=== PATIENT | female | born 2000 | race Caucasian/White ===

== ENCOUNTER 2021-03-20 17:52 | Observation (INO) ==
[2021-03-20 18:17] LABS: Bacteria,Urine Few per hpf (None-Few); Bilirubin,Urine Negative (Negative); Blood,Urine Negative (Negative); Calcium Oxalate Crystals,Urine Present per hpf; Clarity,Urine Turbid (Clear); Color,Urine Yellow (Yellow); Glucose,Urine (UA) Normal (Normal); Hyaline Casts,Urine Few per lpf (None Seen); Ketones,Urine Negative (Negative); Leukocyte Esterase,Urine Moderate (Negative); Mucus,Urine Few per lpf (None-Few); Nitrite,Urine Negative (Negative); PH,Urine 6.5 pH Units (5.0-8.0); Protein,Urine 50 mg/dL (Neg-Trace); Specific Gravity,Urine > 1.030 (1.010-1.025); Squamous Epithelial Cell,Urine Many per hpf (None-Few); Urobilinogen,Urine Normal (Normal)
[2021-03-20 18:25] LABS: Basophils % 0.4 %; Eosinophils # 0.1 K/mcL (0.0-0.6); Eosinophils % 0.6 %; Hematocrit 40.8 % (35.3-44.9); Immature Granulocytes % 0.8 % (0-4); Lymphocytes # 1.9 K/mcL (0.6-4.6); Lymphocytes % 17.1 %; Mean Corpuscular HGB Conc 31.9 g/dL (31.6-35.5); Mean Corpuscular Hemoglobin 29.9 pg (28.0-33.3); Mean Corpuscular Volume 93.8 fL (83.0-100.0); Mean Platelet Volume 11.2 fL (9.4-12.4); Monocytes # 1.1 K/mcL (0.0-1.3); Monocytes % 9.6 %; Neutrophils # 8.1 K/mcL (1.6-8.9); Platelet Count 208 K/mcL (140-400); Red Blood Count 4.35 M/mcL (3.82-4.97); Red Cell Distribution Width 13.7 % (11.5-14.5); Segmented Neutrophils % 71.5 %; White Blood Count 11.3 K/mcL (4.3-11.1)
[2021-03-20 18:33] LABS: Protein/Creatinine Ratio,Urine 0.25 mg/mg (0.00-0.20)
== END 2021-03-20 19:14 | disposition home or self-care (01) ==
LOC: 1NENULAB
PROVIDERS: ADMIT Advanced Practice Midwife; ATTEND Advanced Practice Midwife

== ENCOUNTER 2021-03-24 21:48 | Inpatient (IN) ==
[2021-03-24] MEDS ORDERED: Naloxone 0.4 MG/ML INJ IVP PRN (21:57)
[2021-03-24] MEDS ORDERED: Azithromycin 500 MG in 0.9 % Sodium Chloride 250 ML IVPB PRN (21:57)
[2021-03-24] MEDS ORDERED: Metoclopramide 10 MG/2 ML VIAL IVP PRN (21:57)
[2021-03-24] MEDS ORDERED: Ondansetron 4 MG/2 ML VIAL IVP PRN (21:57)
[2021-03-24] MEDS ORDERED: Famotidine 20 MG/2 ML VIAL IVP PRN (21:57)
[2021-03-24] MEDS ORDERED: Lidocaine 1% 20 ML MDV INFILT PRN (21:57)
[2021-03-24] MEDS ORDERED: miSOPROStoL 25 MCG TABLET VG PRN (21:57)
[2021-03-24] MEDS ORDERED: Oxytocin 20 units/ LR 1000 mL 20 UNIT/1,000 ML BAG IVC SCH (22:00)
[2021-03-24 23:19] LABS: Basophils # 0.1 K/mcL (0.0-0.2); Basophils % 0.4 %; Eosinophils # 0.1 K/mcL (0.0-0.6); Eosinophils % 0.7 %; Hematocrit 38.3 % (35.3-44.9); Hemoglobin 12.4 g/dL (11.5-15.4); Immature Granulocytes % 1.2 % (0-4); Lymphocytes # 2.6 K/mcL (0.6-4.6); Mean Corpuscular HGB Conc 32.4 g/dL (31.6-35.5); Mean Corpuscular Volume 92.5 fL (83.0-100.0); Mean Platelet Volume 10.5 fL (9.4-12.4); Monocytes # 1.1 K/mcL (0.0-1.3); Monocytes % 7.9 %; Neutrophils # 9.6 K/mcL (1.6-8.9); Platelet Count 230 K/mcL (140-400); Red Blood Count 4.14 M/mcL (3.82-4.97); Red Cell Distribution Width 13.8 % (11.5-14.5); Segmented Neutrophils % 70.8 %; White Blood Count 13.6 K/mcL (4.3-11.1)
[2021-03-24 23:20] LABS: Amphetamine Screen,Urine Negative ng/mL (Cutoff=1000); Barbiturate Screen,Urine Negative ng/mL (Cutoff=200); Benzodiazepines Screen,Urine Negative ng/mL (Cutoff=200); Cannabinoid Screen,Urine Negative ng/mL (Cutoff = 50); Cocaine Screen,Urine Negative ng/mL (Cutoff= 300); Opiate Screen,Urine Negative ng/mL (Cutoff=300); Phencyclidine Screen,Urine Negative ng/mL (Cutoff=25)
[2021-03-24 23:48] LABS: Influenza A PCR Negative (Negative); Influenza B PCR Negative (Negative); Resp. Syncytial Virus PCR Negative (Negative)
[2021-03-24 23:56] LABS: SARS-CoV-2 by PCR (In House) Negative (Negative)
[2021-03-24 23:59] LABS: Alanine Aminotransferase 9 Units/L (7-52); Aspartate Amino Transferase 14 Units/L (13-39); BUN/Creatinine Ratio 21 (6-26); Blood Urea Nitrogen 13 mg/dL (6-20); Lactate Dehydrogenase 212 Units/L (140-271); Uric Acid 4.7 mg/dL (2.3-7.6); eGFR For African Americans > 60 (> 60); eGFR For Non-African Americans > 60 (> 60)
[2021-03-25] MEDS ORDERED: EPHEDrine 50 MG/ML VIAL IVP PRN (04:28)
[2021-03-25] MEDS ORDERED: Epidural Premix (fent/bupiv) 110 ML EP SCH (04:30)
[2021-03-25] MEDS ORDERED: miSOPROStoL 25 MCG TABLET PO PRN (05:11)
[2021-03-25 08:16] LABS: Creatinine,Urine 65 mg/dL; Protein/Creatinine Ratio,Urine 0.34 mg/mg (0.00-0.20)
[2021-03-25] MEDS: *HR* Nalbuphine 10 MG/ML AMPUL IV PRN ×2 (09:37→15:17)
[2021-03-25] MEDS: Ringers Solution, Lactated 1,000 ML IVC SCH ×2 (10:45→16:39)
[2021-03-25] MEDS ORDERED: Ropivacaine/PF 0.2% 20 ML VIAL EP ONE (14:58)
[2021-03-25] MEDS ORDERED: *HR* FentaNYL (PF) 100 MCG/2 ML VIAL EP ONE (14:58)
[2021-03-25] MEDS ORDERED: *HR* FentaNYL (PF) 100 MCG/2 ML VIAL ONE (17:54)
[2021-03-25] MEDS ORDERED: Ropivacaine/PF 0.2% 20 ML VIAL ONE (17:55)
[2021-03-26] MEDS ORDERED: Oxytocin 20 units/ LR 1000 mL 20 UNIT/1,000 ML BAG IVC SCH (02:14)
[2021-03-26] MEDS ORDERED: Benzocaine/Menthol 56 GM AEROSOL SPRAY TP PRN (02:14)
[2021-03-26] MEDS ORDERED: Ondansetron ODT 4 MG TAB.RAPDIS SL PRN (02:14)
[2021-03-26] MEDS ORDERED: Lanolin 7 G OINT...G. TP PRN (02:14)
[2021-03-26] MEDS: Acetaminophen 325 MG TABLET PO SCH ×4 (03:18→19:30)
[2021-03-26] MEDS: Ibuprofen 600 MG TABLET PO SCH ×4 (03:19→19:30)
[2021-03-26 05:10] LABS: Basophils % 0.2 %; Eosinophils % 0.1 %; Hematocrit 33.4 % (35.3-44.9); Immature Granulocytes % 0.7 % (0-4); Lymphocytes # 1.7 K/mcL (0.6-4.6); Lymphocytes % 8.8 %; Mean Corpuscular HGB Conc 31.4 g/dL (31.6-35.5); Mean Corpuscular Hemoglobin 29.7 pg (28.0-33.3); Mean Corpuscular Volume 94.4 fL (83.0-100.0); Mean Platelet Volume 10.5 fL (9.4-12.4); Monocytes # 1.4 K/mcL (0.0-1.3); Neutrophils # 16.2 K/mcL (1.6-8.9); Platelet Count 185 K/mcL (140-400); Red Blood Count 3.54 M/mcL (3.82-4.97); Red Cell Distribution Width 13.8 % (11.5-14.5); Segmented Neutrophils % 83.2 %; White Blood Count 19.4 K/mcL (4.3-11.1)
[2021-03-26 05:14] LABS: Hemoglobin 10.5 g/dL (11.5-15.4)
[2021-03-26] MEDS: Prenatal Vit/FA 1 EACH TABLET PO SCH (09:22)
[2021-03-27] MEDS: Acetaminophen 325 MG TABLET PO SCH ×2 (01:20→07:02)
[2021-03-27] MEDS: Ibuprofen 600 MG TABLET PO SCH ×2 (01:21→07:03)
[2021-03-27 01:33] VITALS: O2SAT 96
[2021-03-27 09:04] VITALS: BP 134/98; PULSE 86; TEMP 97.8
[2021-03-27] MEDS: Prenatal Vit/FA 1 EACH TABLET PO SCH (09:16)
== END 2021-03-27 15:45 | disposition home or self-care (01) | DRG 560 ==
LOC: 1NENULAB 21:48 → 1NENUOBS 03-26 01:53
PROVIDERS: ADMIT Obstetrics & Gynecology; ATTEND Obstetrics & Gynecology